=== PATIENT | female | born 1990 | race American Indian/Alaskan Native ===

== ENCOUNTER 2017-03-13 12:43 | Inpatient (IN) | payer MEDICAID ==
[2017-03-13] MEDS ORDERED: CERVIDIL VG ONE (13:10)
[2017-03-13] MEDS ORDERED: BRETHINE IVP PRN (13:10)
[2017-03-13] MEDS ORDERED: MINERAL OIL PO PRN (13:10)
[2017-03-13] MEDS ORDERED: XYLOCAINE 2% INFILTRATI ONE (13:10)
[2017-03-13] MEDS ORDERED: BRETHINE SUB-Q PRN (13:10)
[2017-03-13] MEDS ORDERED: SUBLIMAZE IV PRN (13:10)
[2017-03-13] MEDS ORDERED: ePHEDrine SULFATE IV PRN (13:10)
--- NOTE | 2017-03-13 13:19 | History and Physical Report ---
History of Present Illness Date of examination: 03/13/17 Date of admission: 03/13/17 Chief complaint: Sent from [facility] for induction of labor for CHTN History of present illness: 26 y/o , now 38+ weeks presents to labor and delivery per [facility] recommendation for delivery secondary to CHTN Non compliant with meds. care at [facility] since 9 weeks gestation Past History Past Medical History: hypertension Past Surgical History: no surgical history Social history: no significant social history - Obstetrical History Expected Date of Delivery: 03/21/17 Actual Gestation: 38 Week(s) 6 Day(s) : 2 Para: 0 Hx # Term Pregnancies: 0 Spontaneous Abortions: 1 Number of Living Children: 1 Medications and Allergies Allergies Allergy/AdvReac Type Severity Reaction Status Date / Time No Known Allergies Allergy Unverified 03/13/17 16:43 Active Meds: Active Medications Dinoprostone (Cervidil) 10 mg VG ONCE ONE Stop: 03/13/17 13:11 Ephedrine Sulfate (Ephedrine Sulfate) 10 mg IV Q2M PRN PRN Reason: Hypotension Stop: 03/13/17 13:15 Fentanyl (Sublimaze) 100 mcg IV Q2H PRN PRN Reason: Labor Pain Lactated Ringer's (Lactated Ringers) 1,000 mls @ 125 mls/hr IV DIRECT BRYN Oxytocin/Sodium Chloride (Pitocin/Ns 20 Unit/1000ml Drip) 20 units in 1,000 mls @ 125 mls/hr IV DIRECT BRYN Oxytocin/Sodium Chloride (Pitocin/Ns 30 Unit/500ml) 30 units in 500 mls @ 4 mls /hr IV TITR BRYN PRN Reason: Protocol Lidocaine (Xylocaine 2%) 20 ml INFILTRATI ONCE ONE Stop: 03/13/17 13:11 Mineral Oil (Mineral Oil) 30 ml PO QHS PRN PRN Reason: Constipation Terbutaline Sulfate (Brethine) 0.25 mg SUB-Q ONCE PRN PRN Reason: Hyperstimulation/Hypertonicity Stop: 03/13/17 13:11 Terbutaline Sulfate (Brethine) 0.25 mg IVP ONCE PRN PRN Reason: Hyperstimulation/Hypertonicity Stop: 03/13/17 13:11 Review of Systems All systems: negative - Physical Exam Breasts: Positive: deferred Cardiovascular: Regular rate Lungs: Positive: Clear to auscultation Abdomen: Positive: soft Vulva: both: normal Vagina: Positive: normal moisture Uterus: Positive: enlarged Anus/Rectum: Positive: normal perianal skin Extremities: Positive: normal Deep Tendon Reflex Grade: Normal +2 - Obstetrical FHR: category 1 Uterine Contraction Monitor Mode: Palpation Cervical Dilatation: 0 Cervical Effacement Percentage: 50 station: -3 Uterine Contraction Pattern: Absent Results Result Diagrams: 03/13/17 13:17 All other labs normal. Assessment and Plan A: Induction of labor for CHTN @ 38 weeks P: Cervadil induction
[2017-03-13 13:42] LABS: Hematocrit 29.7 % (30.3-42.9); Hemoglobin 9.5 gm/dl (10.1-14.3); Mean Corpuscular HGB Conc 32 % (30-34); Mean Corpuscular Volume 77 fl (79-97); Platelet Count 222 K/mm3 (140-440); Red Blood Count 3.85 M/mm3 (3.65-5.03); Red Cell Distribution Width 17.5 % (13.2-15.2); White Blood Count 6.2 K/mm3 (4.5-11.0)
[2017-03-13 13:43] LABS: Mean Corpuscular Hemoglobin 25 pg (28-32)
[2017-03-13] MEDS ORDERED: PITOCin/NS 20 UNIT/1000ML DRIP 20 UNITS/1,000 ML BAG IV SCH (14:00)
[2017-03-14] MEDS: LACTATED RINGERS 1,000 ML IV SCH ×2 (02:13→10:20)
--- NOTE | 2017-03-14 06:22 | Event Note ---
Date: 03/14/17 Cervidil removed from vagina at 05:50. SVE FT/50/posterior. Reassuring heart rate tracing. BPs stable.
[2017-03-14] MEDS: NORMODYNE PO SCH ×2 (07:15→18:30)
[2017-03-14] MEDS: PITOCin/NS 30 UNIT/500ML 30 UNITS/500 ML BAG IV SCH (09:00)
--- NOTE | 2017-03-14 11:54 | Event Note ---
Date: 03/14/17 Patient is receiving Pitocin for induction of labor due to chronic hypertension , at term. Patient reports she now feels contractions but they are not painful yet. Patient denies VB or LOF. Patient denies headache, visual disturbance, N/V, abdominal pain. She has swelling in both feet; no facial or hand edema. BPs have been well controlled with Labetalol 200 mg po BID. Reassuring category 1 FHR tracing. Contractions everv 2-5 minutes, palpate mild ; uterus palpates soft between contractions. Continue Pitocin induction of labor.
--- NOTE | 2017-03-14 14:48 | Event Note ---
Date: 03/14/17 Pt. reports she is feeling her contractions now. SVE 1-2/70/-3. Reassuring category 1 heart rate tracing. Blood pressure well controlled. Will continue with IOL. Plan to re-Cervidil pt. beau.
[2017-03-14] MEDS ORDERED: CERVIDIL VG ONE (19:00)
--- NOTE | 2017-03-14 20:37 | Event Note ---
Date: 03/14/17 Category 1 heart rate tracing. Cervidil 10 mg placed in posterior fornix of vagina without difficulty.
[2017-03-14] MEDS: VALTREX PO SCH (22:15)
[2017-03-15] MEDS: NORMODYNE PO SCH (06:00)
[2017-03-15] MEDS: VALTREX PO SCH (10:56)
[2017-03-15] MEDS: LACTATED RINGERS 1,000 ML IV SCH (10:58)
[2017-03-15] MEDS: PITOCin/NS 30 UNIT/500ML 30 UNITS/500 ML BAG IV SCH (11:07)
--- NOTE | 2017-03-15 15:35 | Event Note ---
Date: 03/15/17 Patient is having labor induced at term due to chronic hypertension. She had Cervidil again last night and now is receiving Pitocin for induction. This is second day of attempting to induce labor. At 1:30 PM today I checked patient's cervix and it was 1-2/70/-3/cephalic. Intact membranes. No vaginal bleeding. Active movement. Category 1 heart rate tracing. Contractions becoming regular; patient states she feels contractions but they do not hurt yet. I discussed with patient that I will check her cervix again at 4 PM and if no change then I will let MD know. Discussed with patient pros and cons of continuing induction versus having a section. Patient states she will consider these options and let us know.
[2017-03-15] MEDS ORDERED: APRESOLINE IV ONE (16:38)
--- NOTE | 2017-03-15 17:01 | Event Note ---
Date: 03/15/[address] Ruano regarding patient, her SVE of 2/70/-3 on third day of induction of labor, her elevated blood pressures, necessitating IV Hydralazine. Dr. Ruano states he will come and perform section. Failed induction of labor and hypertension. Discussed this plan with patient and patient's mother. Patient states she agrees with having a section and her mother states she is also in agreement.
[2017-03-15] MEDS ORDERED: REGLAN IV ONE (17:04)
[2017-03-15] MEDS ORDERED: BICITRA PO ONE (17:04)
[2017-03-15] MEDS ORDERED: PEPCID IV ONE (17:04)
[2017-03-15] MEDS ORDERED: MORPHINE ONE (17:46)
[2017-03-15] MEDS ORDERED: NACL 0.9% IR ONE (17:50)
[2017-03-15] MEDS ORDERED: WATER FOR IRRIG STERILE IR ONE (17:50)
[2017-03-15] MEDS ORDERED: ANCEF/STERILE WATER 2 GM/20 ML 2 GM/20 ML SYRINGE IV NR (18:00)
[2017-03-15] MEDS ORDERED: TORADOL ONE (18:15)
--- NOTE | 2017-03-15 18:51 | Operative Report ---
Operative Report Operative Report: Date of procedure: 03/15/2017 Pre-operative diagnosis: 1. Intrauterine at 39-1/7 weeks 2. Chronic hypertension 3. Failed induction of labor Post-operative diagnosis: Same Procedure name(s): Primary low transverse section Surgeon: Dar Ruano MD Search And Rescue Officer: None Anesthesia: Spinal anesthesia by Dr. Gomez Dillon EBL: 750 mL's Findings: A 3372 g male infant Apgars 8 at 1 minute 9 at 5 minutes. Clear amniotic fluid. Normal uterus. Normal tubes and ovaries bilaterally. Procedure: After the patient was prepped and draped in usual sterile fashion, and after satisfactory level of epidural anesthesia was obtained, the skin knife was used to make a transverse skin incision. The incision was excised down to layer of the fascia, which was nicked in the midline and extended laterally using the Bovie cautery. The rectus muscles were dissected off the rectus fascia both superiorly and inferiorly. The rectus bellies in the midline, and the peritoneum was entered under direct visualization. The peritoneal incision was extended superiorly and inferiorly. A bladder flap was created and the bladder blade was then placed. The uterus was scored in a curvilinear linear fashion, entered in the midline revealing clear amniotic fluid. The infant's head was delivered onto the surgical field, and the oropharynx and nasopharynx were bulb suctioned. The rest of the 's body was delivered, cord was doubly clamped and cut and the infant was handed to the waiting respiratory team. The placenta was manually removed from the uterus, and the uterus removed from its normal anatomical position. After gentle uterine lavage, the incision was inspected and found to be without extensions. It was then closed in 2 layers using 0 Vicryl suture in a running interlocking fashion, the second layer imbricating the first. After good hemostasis was achieved, copious amounts or irrigation was performed, and the gutters were suctioned free of blood and blood clots. Tisseel sealant was sprayed across the uterine incision. The uterus was then returned to its normal anatomical position, and after excellent hemostasis assured, the peritoneum was re- approximated using 3-0 Vicryl suture in a running interlocking fashion, and then the rectus muscles were re-approximated using 3-0 Vicryl suture in a figure -of-eight configuration. The fascia was then re-approximated using 0 Vicryl suture in running interlocking fashion. The subcutaneous layer was made hemostatic using Bovie cautery, the Tisseel sealant was sprayed across the fascial incision and the skin edges re-approximated using 4-0 Vicryl suture in a sub-cuticular fashion. Patient tolerated the procedure well was transported to recovery in stable condition.
[2017-03-15] MEDS ORDERED: TORADOL IV PRN (18:59)
[2017-03-15] MEDS ORDERED: MYLICON PO PRN (18:59)
[2017-03-15] MEDS ORDERED: MILK OF MAGNESIA PO PRN (18:59)
[2017-03-15] MEDS ORDERED: NORCO 5/325 PO PRN (18:59)
[2017-03-15] MEDS ORDERED: SENOKOT PO PRN (18:59)
[2017-03-15] MEDS ORDERED: ZOFRAN IV PRN ×2 (18:59→19:03)
[2017-03-15] MEDS ORDERED: TUCKS PAD TP PRN (18:59)
[2017-03-15] MEDS ORDERED: TYLENOL PO PRN (18:59)
[2017-03-15] MEDS ORDERED: NARCAN 0.4 MG/1 ML IV PRN ×2 (18:59→19:03)
[2017-03-15] MEDS ORDERED: PHENERGAN PR PRN ×2 (18:59→19:03)
[2017-03-15] MEDS ORDERED: LANSINOH TP PRN (18:59)
[2017-03-15] MEDS ORDERED: PITOCin/NS 20 UNIT/1000ML DRIP 20 UNITS/1,000 ML BAG IV SCH (19:00)
[2017-03-15] MEDS ORDERED: SODIUM CHLORIDE FLUSH SYRINGE 10 ML IV NR ×2 (19:00→20:00)
[2017-03-15] MEDS ORDERED: D5LR 1,000 ML IV SCH (19:00)
--- NOTE | 2017-03-15 19:02 | Post Anesthesia Evaluation ---
- Post Anesthesia Evaluation Patient Participated: Yes Airway Patent: Yes Stable Respiratory Function: Yes Nausea/Vomiting: No Temp > 96.8F: Yes Pain Manageable: Yes Adequeate Hydration: Yes Anesthesia Complications: No
--- NOTE | 2017-03-15 19:02 | Anesthesia Consultation ---
Anesthesia Consult and Med Hx Date of service: 03/15/17 - Airway Anesthetic Teeth Evaluation: Good Mental/Hyoid Distance: Adequate Mallampati Class: Class II Intubation Access Assessment: Good - Pulmonary Exam CTA: Yes - Cardiac Exam Cardiac Exam: No Murmur - Pre-Operative Health Status ASA Pre-Surgery Classification: ASA2 Proposed Anesthetic Plan: Spinal - Pulmonary Hx Asthma: No COPD: No Hx Pneumonia: No - Cardiovascular System Hx Hypertension: No - Central Nervous System Hx Seizures: No Hx Psychiatric Problems: No - Endocrine Hx Renal Disease: No Hx End Stage Renal Disease: No Hx Hypothyroidism: No Hx Hyperthyroidism: No - Hematic Hx Anemia: No Hx Sickle Cell Disease: No - Other Systems Hx Alcohol Use: No
[2017-03-15] MEDS ORDERED: PHENERGAN PO PRN (19:03)
[2017-03-15] MEDS ORDERED: DILAUDID IV PRN ×2 (19:03)
[2017-03-15] MEDS ORDERED: fentaNYL-BUPIV 2 MCG/ML-0.125% 200 MCG/100 ML BAG EPIDURAL SCH (20:00)
[2017-03-16] MEDS: ANCEF/NS 1 GM/50 ML 1 GM/50 ML BAG IV SCH ×2 (00:30→09:16)
[2017-03-16] MEDS ORDERED: M-M-R II VACCINE SUB-Q ONE (06:00)
[2017-03-16] MEDS ORDERED: BOOSTRIX IM ONE (06:00)
[2017-03-16] MEDS: NORMODYNE PO SCH ×2 (06:07→18:34)
[2017-03-16 07:50] LABS: Hematocrit 27.3 % (30.3-42.9); Hemoglobin 8.8 gm/dl (10.1-14.3)
--- NOTE | 2017-03-16 09:18 | Progress Note ---
Assessment and Plan A: POD # 1 -stable P: Continue post op care Subjective - Subjective Date of service: 03/16/17 Principal diagnosis: Primary C-sectio for failed induction Interval history: 26 y/o , now 38+ weeks presents to labor and delivery per APA recommendation for delivery secondary to CHTN Non compliant with meds. care at [facility] since 9 weeks gestation Patient reports: appetite normal : doing well Objective - Vital Signs Latest vital signs: Vital Signs Temp Pulse Resp BP Pulse Ox 03/16/17 08:15 98.3 F 86 20 122/50 03/16/17 06:07 62 132/64 03/16/17 04:20 98.6 F 87 18 146/76 03/16/17 01:05 97 F L 70 20 126/67 03/15/17 20:35 97.5 F L 60 20 147/74 03/15/17 19:58 97.7 F 03/15/17 19:50 59 L 18 108/54 98 03/15/17 19:45 59 L 22 101/53 98 03/15/17 19:40 63 13 110/52 98 03/15/17 19:35 65 20 107/53 98 03/15/17 19:30 61 20 102/49 99 03/15/17 19:25 60 19 102/46 99 03/15/17 19:20 58 L 13 101/43 99 03/15/17 19:15 58 L 19 102/44 99 03/15/17 19:10 62 18 99/49 98 03/15/17 19:05 62 19 105/49 98 03/15/17 19:00 61 15 98 03/15/17 18:56 65 21 97 03/15/17 18:55 97.8 F 03/15/17 17:17 77 180/81 03/15/17 17:16 82 96 03/15/17 17:11 75 98 03/15/17 17:06 77 99 03/15/17 17:01 86 99 03/15/17 16:57 76 177/82 03/15/17 16:56 81 98 03/15/17 16:55 76 183/83 03/15/17 16:54 97.7 F 80 18 177/82 84 03/15/17 16:51 77 98 03/15/17 16:47 49 L 77 L 03/15/17 16:46 34 L 84 03/15/17 16:41 80 98 03/15/17 16:40 79 84 03/15/17 16:36 79 97 03/15/17 16:35 79 18 175/84 03/15/17 16:34 79 82 L 03/15/17 16:31 72 99 03/15/17 16:30 73 163/84 03/15/17 16:27 76 167/79 80 L 03/15/17 16:26 78 98 03/15/17 16:21 74 99 03/15/17 16:18 74 175/84 03/15/17 16:15 76 98 03/15/17 16:12 75 165/77 03/15/17 16:10 97.7 F 72 16 163/77 98 03/15/17 13:25 76 99 03/15/17 13:20 74 98 03/15/17 13:15 77 99 03/15/17 13:10 90 99 03/15/17 13:05 77 98 03/15/17 13:00 71 98 03/15/17 12:55 75 98 03/15/17 12:50 71 98 03/15/17 12:45 75 99 03/15/17 12:37 77 96 03/15/17 12:32 73 96 03/15/17 12:27 76 98 03/15/17 12:22 73 97 03/15/17 12:17 75 97 03/15/17 12:15 97.9 F 72 18 147/72 97 03/15/17 12:12 72 97 03/15/17 12:07 77 97 03/15/17 12:02 75 97 03/15/17 11:57 76 97 03/15/17 11:52 77 96 17 11:47 74 98 17 11:42 72 98 03/15/17 11:37 75 98 03/15/17 11:32 76 98 03/15/17 11:27 81 98 03/15/17 11:22 81 98 17 11:17 83 98 17 11:14 117 H 91 03/15/17 11:12 79 98 03/15/17 11:07 80 98 03/15/17 11:02 80 98 03/15/17 10:57 75 99 03/15/17 10:52 79 98 03/15/17 10:47 85 98 Intake and Output 03/15/17 03/16/17 03/16/17 22:59 06:59 14:59 Intake Total 1500 340 125 Output Total 560 600 Balance 940 -260 125 Intake: IV 1500 125 Left Forearm 125 Intake, Free Water 340 Output: Urine 560 600 Indwelling Catheter 600 Uretheral (Flanagan) 30 Other: Total, Output Amount 600 Estimated Blood Loss 750 - Exam Breasts: Present: deferred Cardiovascular: Present: Regular rate Lungs: Present: Clear to auscultation Abdomen: Present: soft Uterus: Present: fundal height below umbilicus Deep Tendon Reflex Grade: Normal +2 Incision: Present: dressed - Labs Labs: Abnormal lab results 03/16/17 Range/Units 06:49 Hgb 8.8 L (10.1-14.3) gm/dl Hct 27.3 L (30.3-42.9) %
[2017-03-16] MEDS ORDERED: FEOSOL PO SCH (10:00)
[2017-03-16] MEDS ORDERED: PRENATAL VITAMIN PO SCH (10:00)
--- NOTE | 2017-03-16 10:50 | Progress Note ---
Subjective Date of service: 03/16/17 Principal diagnosis: Primary C-sectio for failed induction Interval history: 1st POD after Patient is in the bed, comfortable. Pain is well controlled with pain meds. Ambulated well. No residual neurological deficit. Some pruritus in under control. No anesthesia complications Objective - Constitutional Vitals: Vital Signs - 12hr 03/16/17 03/16/17 03/16/17 01:05 04:20 06:07 Temperature 97 F L 98.6 F Pulse Rate 70 87 62 Respiratory 20 18 Rate Blood Pressure 126/67 146/76 132/64 03/16/17 08:15 Temperature 98.3 F Pulse Rate 86 Respiratory 20 Rate Blood Pressure 122/50 - Labs CBC & Chem 7: 03/16/17 06:49 Labs: Abnormal lab results 03/16/17 Range/Units 06:49 Hgb 8.8 L (10.1-14.3) gm/dl Hct 27.3 L (30.3-42.9) %
[2017-03-16] MEDS: PERCOCET 5/325 PO PRN ×2 (14:11→21:11)
[2017-03-16] MEDS: MOTRIN PO PRN (21:11)
[2017-03-17] MEDS: MOTRIN PO PRN ×2 (03:48→12:43)
[2017-03-17] MEDS: PERCOCET 5/325 PO PRN ×3 (03:49→12:49)
[2017-03-17] MEDS: NORMODYNE PO SCH (06:17)
--- NOTE | 2017-03-17 09:06 | Progress Note ---
Assessment and Plan A: POD #2 - stable P: Discharge home today Continue BP meds at home Subjective - Subjective Date of service: 03/17/17 Principal diagnosis: Primary C-sectio for failed induction Interval history: 26 y/o , now 38+ weeks presents to labor and delivery per APA recommendation for delivery secondary to CHTN Non compliant with meds. care at [facility] since 9 weeks gestation Patient reports: appetite normal : doing well Objective - Vital Signs Latest vital signs: Vital Signs Temp Pulse Resp BP 03/17/17 08:00 97.9 F 74 18 135/68 03/17/17 06:17 78 147/72 03/17/17 01:30 97.8 F 76 20 149/82 03/16/17 18:34 84 142/82 03/16/17 16:52 98.7 F 76 24 118/70 03/16/17 14:11 20 03/16/17 12:54 99.0 F 80 20 150/86 Intake and Output 03/16/17 03/17/17 03/17/17 22:59 06:59 14:59 Intake Total 240 Balance 240 Intake: Oral 240 Other: Total, Intake Amount 240 - Exam Breasts: Present: deferred Cardiovascular: Present: Regular rate Lungs: Present: Clear to auscultation Abdomen: Present: soft Vulva: both: normal Uterus: Present: fundal height below umbilicus Extremities: Present: normal Deep Tendon Reflex Grade: Normal +2 Incision: Present: intact
--- NOTE | 2017-03-17 09:07 | Discharge Summary ---
Providers - Providers Date of Admission: 03/13/17 14:57 Date of discharge: 03/17/17 Attending physician: COURTNEY SULLIVAN MD Primary care physician: COURTNEY SULLIVAN MD Hospitalization Reason for admission: induction of labor Delivery: Procedure: section Incision: intact Discharge diagnosis: IUP at term delivered [place] baby: male Condition at discharge: Good Disposition: DC-01 TO HOME OR SELFCARE Plan - Discharge Medications Prescriptions: Ferrous Sulfate [Feosol 325 MG tab] 325 mg PO BID #60 tablet HYDROcodone/APAP 5-325 [[place] 5/325] 1 each PO Q6HR PRN #30 tablet PRN Reason: Pain Ibuprofen [Motrin] 800 mg PO Q8HR PRN #30 tablet PRN Reason: Moder Pain Unrelieved By [place] Pnv95/Ferrous Fumarate/FA [Prenavite Tablet] 1 each PO DAILY #30 tablet - Provider Discharge Summary Activity: routine, no sex for 6 weeks, no strenuous exercise Diet: routine Instructions: routine Additional instructions: [] Smoking cessation referral if applicable(refer to patient education folder for contact #) [] Refer to [facility] Booklet Call your doctor immediately for: * Fever > 100.5 * Heavy vaginal bleeding ( >1 pad per hour) * Severe persistent headache * Shortness of breath * Reddened, hot, painful area to leg or breast * Drainage or odor from incision. * Keep incision clean and dry at all times and follow doctor's instructions regarding bathing/showering - Follow up plan Follow up: [facility] [Provider Group] - 14 Days
[2017-03-17 15:53] VITALS: BP 144/82
== END 2017-03-17 16:00 | disposition home or self-care (01) | DRG 765 ==
LOC: TRG 12:43 → LD 14:57 → OB 03-15 20:48
PROVIDERS: ADMIT Obstetrics & Gynecology; ATTEND Obstetrics & Gynecology
PROC: 10D00Z1 Extraction of Products of Conception, Low, Open Approach (ICD-10-PCS; principal; 2017-03-15)
PROC: 3E0234Z Introduction of Serum, Toxoid and Vaccine into Muscle, Percutaneous Approach (ICD-10-PCS; 2017-03-16)
DX: O10.92 Unspecified pre-existing hypertension complicating childbirth (principal); Z68.41 Body mass index [BMI] 40.0-44.9, adult; O61.9 Failed induction of labor, unspecified; M79.89 Other specified soft tissue disorders; Z3A.38 38 weeks gestation of pregnancy; Z37.0 Single live birth; Z91.14 Patient's other noncompliance with medication regimen; Z23 Encounter for immunization; O99.214 Obesity complicating childbirth; E66.01 Morbid (severe) obesity due to excess calories
CPT/HCPCS: 36415; 59200; 85014; 85018; 85027; 86850; 86900; 86901; 99211; C9250; G0463; J0360; J0690; J1885; J2270; J2590; J2765; J7120; J7121